=== PATIENT | male | born 1995 | race Caucasian/White ===

== ENCOUNTER 2017-05-26 12:37 | Emergency (ER) | payer OTHER ==
[2017-05-26 12:38] VITALS: BP 136/71; PULSE 88; RESP 15; TEMP 98.2; O2SAT 97
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
== END 2017-05-26 15:05 | disposition home or self-care (01) ==
LOC: NEPK 12:37
DX: M25.572 Pain in left ankle and joints of left foot (principal); V43.52XA Car driver injured in collision with other type car in traffic accident, initial encounter
CPT/HCPCS: 71020; 73630; 99284